=== PATIENT | male | born 1965 | race Hispanic/Latino ===

== ENCOUNTER → 2025-09-12 | Outpatient (CLI) | payer OTHER ==
[~2025-09-12] MED LIST: CYAN-35 SL; FERR-82 PO; LACT10SO76 PO; LINA290C PO; OMEP20TA20 PO; ONDA-104 PO
[2025-09-12 14:09] LABS: IMMATURE GRANULOCYTE ABSOLUTE 0.00 K/uL (0-1); NUCLEATED RED BLOOD CELLS 0.0 % (0.0-0.19); PLATELET COUNT (AUTO) 73 K/uL (130-400); RED BLOOD CELL COUNT(AUTO) 4.04 MIL/uL (4.50-6.20); RED CELL DISTRIBUTION WIDTH 19.3 % (11.0-15.5); WHITE BLOOD COUNT (AUTO) 2.6 K/uL (4.8-10.8)
[2025-09-12 14:29] LABS: % IRON SATURATION 7.2 % (30-44); IRON, SERUM 28.0 mcg/dL (65-175)
[2025-09-12 14:34] LABS: CREATININE 0.8 mg/dL (0.5-1.3); GLOMERULAR FILTR. RATE CALC 103.0 mL/min (>90); UREA NITROGEN, BLOOD 7.0 mg/dL (7-18)
[2025-09-12 15:35] LABS: BAND NEUTROPHILS % (MANUAL) 4 % (0-2); LYMPHOCYTES % (MANUAL) 24 % (22-44); MAN.DIFF COMMENT-IMPRESSION MANUAL DIFFERENTIAL; METAMYELOCYTES % 4 % (0-0); MONOCYTES % (MANUAL) 3 % (2-9); REACTIVE LYMPHOCYTES 18 % (0-0); SEGMENTED NEUTROPHILS % 47 % (40-70)
[2025-09-12 15:37] LABS: PLATELET MORPHOLOGY COMMENT DECREASED
== END | disposition home or self-care (01) ==
LOC: LAB 13:24
PROVIDERS: ATTEND Internal Medicine Gastroenterology
DX: K70.30 Alcoholic cirrhosis of liver without ascites (principal); D64.9 Anemia, unspecified
CPT/HCPCS: 36415; 82565; 82728; 83540; 83550; 84520; 85025

== ENCOUNTER → 2025-09-14 | Outpatient (CLI) | payer OTHER ==
[2025-09-12 14:09] LABS: IMMATURE GRANULOCYTE ABSOLUTE 0.00 K/uL (0-1); NUCLEATED RED BLOOD CELLS 0.0 % (0.0-0.19); PLATELET COUNT (AUTO) 73 K/uL (130-400); RED BLOOD CELL COUNT(AUTO) 4.04 MIL/uL (4.50-6.20); RED CELL DISTRIBUTION WIDTH 19.3 % (11.0-15.5); WHITE BLOOD COUNT (AUTO) 2.6 K/uL (4.8-10.8)
[2025-09-12 14:29] LABS: % IRON SATURATION 7.2 % (30-44); IRON, SERUM 28.0 mcg/dL (65-175)
[2025-09-12 14:34] LABS: CREATININE 0.8 mg/dL (0.5-1.3); GLOMERULAR FILTR. RATE CALC 103.0 mL/min (>90); UREA NITROGEN, BLOOD 7.0 mg/dL (7-18)
[2025-09-12 15:35] LABS: BAND NEUTROPHILS % (MANUAL) 4 % (0-2); LYMPHOCYTES % (MANUAL) 24 % (22-44); MAN.DIFF COMMENT-IMPRESSION MANUAL DIFFERENTIAL; METAMYELOCYTES % 4 % (0-0); MONOCYTES % (MANUAL) 3 % (2-9); REACTIVE LYMPHOCYTES 18 % (0-0); SEGMENTED NEUTROPHILS % 47 % (40-70)
[2025-09-12 15:37] LABS: PLATELET MORPHOLOGY COMMENT DECREASED
[~2025-09-14] MED LIST changes: +IOHEXOL-350 75 ML VIAL IV ONE
--- NOTE | 2025-09-15 | HMCIMG ---
EXAM: CT SCAN OF THE ABDOMEN AND PELVIS WITH AND WITHOUT CONTRAST (TRIPHASIC LIVER PROTOCOL) Clinical statement: Alcoholic cirrhosis of the liver without ascites; evaluation with three-phase CT. STUDY PROTOCOL: CT radiation dose protocol was performed in accordance with the principles of ALARA. A multislice CT scan of the abdomen and pelvis was performed with noncontrast, arterial, portal venous, and delayed postcontrast phases following intravenous contrast administration. Oral contrast was also administered. Sections were obtained from the diaphragms to the inguinal region. RADIATION DOSE: CTDIvol 130.90 mGy; DLP 6081.20 mGycm. CONTRAST: Standard dose of intravenous contrast and oral contrast administered. COMPARISON: CT scan of the abdomen and pelvis from 04/18/25 at 13:32 EDT. FINDINGS: LUNG BASE: Visualized lung bases are clear. No focal consolidation or pleural effusion. LIVER: Liver demonstrates mild capsular surface irregularity compatible with chronic parenchymal liver disease/cirrhosis. Parenchymal enhancement is homogeneous on arterial, portal venous, and delayed phases. No discrete arterial hyperenhancing mass, washout, or capsule is identified to suggest hepatocellular carcinoma. GALL BLADDER: Gallbladder is normally distended with thin, smooth wall and no radioopaque gallstones. No intrahepatic or extrahepatic biliary ductal dilatation. Mild pericholecystic fat haziness is present, which may be reactive in the setting of chronic liver disease and portal hypertension but is nonspecific. PANCREAS: Normal in size and contour with homogeneous enhancement. No peripancreatic fluid collection or inflammatory change. SPLEEN: Spleen measures approximately 13.8 cm in craniocaudal dimension, consistent with mild splenomegaly. Dilated paraumbilical veins are present. KIDNEYS: Kidneys are normal in size and morphology with symmetric enhancement. No hydronephrosis, hydroureter, or urinary calculi. GIT /T/ PERITONEAL CAVITY: Small sliding hiatal hernia. Colonic diverticulosis without CT evidence of diverticulitis. Stomach and small bowel loops are normal in caliber and wall thickness. No bowel obstruction. No CT features of enteritis or colitis. No free intraperitoneal fluid or free air. Diffuse mesenteric fat stranding is present but decreased compared with the prior CT. LYMPHNODES: No pathologically enlarged mesenteric, retroperitoneal, or pelvic lymph nodes. RETROPERITONEUM: Adrenal glands are unremarkable. Abdominal aorta is normal in caliber without aneurysmal dilatation. No retroperitoneal mass or collection. PELVIS: Urinary bladder is unremarkable. Visualized reproductive organs are within normal limits for age. MUSCULOSKELETAL: Degenerative changes in the visualized lumbar spine with marginal osteophytes and multilevel disc degeneration. No aggressively appearing osseous lesion or acute osseous abnormality. OTHER: Dilated paraumbilical veins as noted above. Tiny fat-containing umbilical hernia. IMPRESSION: * Imaging features of chronic liver disease with capsular surface irregularity and stigmata of portal hypertension, including mild splenomegaly and dilated paraumbilical veins, in keeping with the history of alcoholic cirrhosis. No definite CT evidence of hepatocellular carcinoma on this multiphasic examination. * Mild pericholecystic fat haziness without gallstones or biliary ductal dilatation. This may represent reactive change related to cirrhosis/portal hypertension or early cholecystitis. Correlate with right upper quadrant symptoms and laboratory markers; if clinical concern persists, right upper quadrant ultrasound is recommended. * Colonic diverticulosis without CT evidence of diverticulitis. Small sliding hiatal hernia. * Diffuse mesenteric fat stranding, decreased compared with CT abdomen/pelvis from 04/18/25 at 13:32 EDT, suggesting improving mesenteric inflammation or edema. * Degenerative changes of the lumbar spine without acute osseous abnormality. Tiny fat-containing umbilical hernia. /[place]
== END | disposition home or self-care (01) ==
LOC: RAH 08:07 → DAH 08:07
PROVIDERS: ATTEND Internal Medicine Gastroenterology
DX: K70.30 Alcoholic cirrhosis of liver without ascites (principal); K57.30 Diverticulosis of large intestine without perforation or abscess without bleeding; K44.9 Diaphragmatic hernia without obstruction or gangrene; M47.816 Spondylosis without myelopathy or radiculopathy, lumbar region; R16.1 Splenomegaly, not elsewhere classified; K42.9 Umbilical hernia without obstruction or gangrene; M25.78 Osteophyte, vertebrae
CPT/HCPCS: 83540; 83550; 84520; 82565; 82728; 85025; 36415; 74170; Q9967